=== PATIENT | female | born 1955 | race Caucasian/White ===

== ENCOUNTER 2021-11-05 12:50 | Outpatient (CLI) | payer BC, SELFPAY ==
[2021-11-05 13:07] VITALS: BP 157/96; PULSE 85; RESP 18; TEMP 36.5; O2SAT 98; BMI 45.1
[2021-11-05] MEDS: 0.9% Saline Lock 10 ML Syringe IV (13:12)
[2021-11-05 14:20] VITALS: BP 141/82; PULSE 60; RESP 16; TEMP 36.9; O2SAT 99
[2021-11-05 15:06] VITALS: BP 142/107; PULSE 88; RESP 16; TEMP 36.8; O2SAT 98
== END 2021-11-05 15:13 | disposition home or self-care (01) ==
LOC: MS3OUT 12:51 → MS3 12:52
PROVIDERS: Visit Provider Nurse Practitioner Adult Health
DX: Z23 Encounter for immunization (principal); U07.1 COVID-19
CPT/HCPCS: J7050; M0245; Q0245; A4216

== ENCOUNTER → 2024-06-28 | Outpatient (CLI) | payer MEDICARE, BC, SELFPAY | END | disposition home or self-care (01) | LOC: SL 13:42 | PROVIDERS: Visit Provider Nurse Practitioner Acute Care | DX: Z46.89 Encounter for fitting and adjustment of other specified devices (principal) ==